=== PATIENT | female | born 1955 | race Caucasian/White ===

== ENCOUNTER 2019-05-31 19:25 | Emergency (ER) | payer OTHER ==
[~2019-05-31] VITALS: Ht 175.3 cm; Wt 79.4 kg
[~2019-05-31 19:25] MED LIST: CAPOTEN25 MG PO
[2019-05-31] MEDS ORDERED: CARAFATE1 GM (19:45)
== END 2019-05-31 21:27 | disposition home or self-care (01) ==
LOC: ER 19:25
DX: K29.70 Gastritis, unspecified, without bleeding (principal); R51 Headache

== ENCOUNTER 2019-07-16 20:40 | Emergency (ER) | payer OTHER ==
[~2019-07-16] VITALS: Ht 175.3 cm; Wt 77.1 kg
[~2019-07-16 20:40] MED LIST changes: +CARAFATE1 GM
[2019-07-16] MEDS ORDERED: NABUMETONE750 MG (21:13)
[2019-07-16] MEDS ORDERED: CIPRO500 MG/5 M (21:13)
== END 2019-07-17 00:55 | disposition home or self-care (01) ==
LOC: ER 20:40
DX: N39.0 Urinary tract infection, site not specified (principal); R10.2 Pelvic and perineal pain

== ENCOUNTER → 2020-09-22 08:00 | Outpatient (CLI) | payer OTHER ==
[~2020-09-22 08:00] MED LIST changes: +CIPRO500 MG/5 M; +NABUMETONE750 MG
== END | disposition home or self-care (01) ==
LOC: LAB 08:00 → ADM 09:15 → EDSTATUS 09-29 09:15 → AMB-ENDOS 09-29 09:15
PROVIDERS: ATTEND Internal Medicine Gastroenterology
DX: D12.2 Benign neoplasm of ascending colon (principal); R05 Cough; R50.9 Fever, unspecified; Z20.828 Contact with and (suspected) exposure to other viral communicable diseases

== ENCOUNTER 2020-12-05 22:41 | Emergency (ER) | payer OTHER ==
[~2020-12-05] VITALS: Ht 175.3 cm; Wt 74.4 kg
[2020-12-05] MEDS ORDERED: NORFLEX (23:30)
[2020-12-05] MEDS ORDERED: PRENISONA (23:30)
[2020-12-05] MEDS ORDERED: PROTONIX (23:31)
[2020-12-06] MEDS ORDERED: CEPHALEXIN500 M1 PO (02:20)
[2020-12-06] MEDS ORDERED: PYRIDIUM DS200 MG PO (02:20)
== END 2020-12-06 02:33 | disposition home or self-care (01) ==
LOC: ER 22:41
DX: N39.0 Urinary tract infection, site not specified (principal)

== ENCOUNTER 2021-01-05 09:15 | Outpatient (CLI) | payer OTHER ==
[~2021-01-05 09:15] MED LIST changes: +CEPHALEXIN500 M1 PO; +NORFLEX; +PRENISONA; +PROTONIX; +PYRIDIUM DS200 MG PO
== END 2021-01-05 09:24 | disposition home or self-care (01) ==
LOC: RAD 09:15 → TOM 09:45 → MRI 10:15
DX: M51.37 Other intervertebral disc degeneration, lumbosacral region (principal); K57.90 Diverticulosis of intestine, part unspecified, without perforation or abscess without bleeding; R10.2 Pelvic and perineal pain; N28.89 Other specified disorders of kidney and ureter; M48.062 Spinal stenosis, lumbar region with neurogenic claudication
CPT/HCPCS: 72148; 74177; Q9965